=== PATIENT | male | born 1965 | race Caucasian/White ===

== ENCOUNTER 2019-02-10 14:32 | Emergency (ER) | payer MEDICAID, OTHER ==
[~2019-02-10] VITALS: Ht 167.6 cm; Wt 81.2 kg
[~2019-02-10 14:32] MED LIST: ACET-8386 PO; IBUP-974 PO
[2019-02-10 15:03] VITALS: BP 107/79
== END 2019-02-10 16:27 | disposition left against medical advice (07) ==
LOC: MED 14:32
DX: T65.893A Toxic effect of other specified substances, assault, initial encounter (principal); R44.1 Visual hallucinations; Z53.21 Procedure and treatment not carried out due to patient leaving prior to being seen by health care provider

== ENCOUNTER 2020-03-15 18:14 | Emergency (ER) | payer OTHER ==
[~2020-03-15] VITALS: Ht 172.7 cm; Wt 74.8 kg
[2020-03-15 18:26] VITALS: BP 124/80
[2020-03-15] MEDS ORDERED: LIDOCAINE MPF 1% 10 MG/ML VIAL INJ ONE (18:40)
[2020-03-15] MEDS ORDERED: BACITRACIN OINT 500 UNITS/GM PKT TP ONE (18:40)
--- NOTE | 2020-03-15 18:40 | NUR ---
C/O LAC WOUND TO FACE & RIGHT ARM S/P DOG BITE X 1 HOUR AGO. PATIENT'S FRIEND 'S DOG. [facility]: [facility] Addendum: 03/15/20 at 1856 by [email or web address] PT STATED HIS FRIEND'S DOG GOT VACCINE ALREADY.
--- NOTE | 2020-03-15 19:17 | NUR ---
Patient discharged with v/s stable. Written and verbal after care instructions given and explained. Patient alert, oriented and verbalized understanding of instructions. Ambulatory with steady gait. All questions addressed prior to discharge. ID band removed. Patient advised to follow up with PMD. Rx of BACITRACIN, AUGMENTIN & IBUPROFEN given. Patient educated on indication of medication including possible reaction and side effects. Opportunity to ask questions provided and answered.
[2020-03-15 19:18] VITALS: BP 124/80
== END 2020-03-15 19:17 | disposition home or self-care (01) ==
LOC: MED 18:14
DX: S51.811A Laceration without foreign body of right forearm, initial encounter (principal); S01.81XA Laceration without foreign body of other part of head, initial encounter; Z79.899 Other long term (current) drug therapy; W54.0XXA Bitten by dog, initial encounter; Y93.89 Activity, other specified; Y92.89 Other specified places as the place of occurrence of the external cause; Y99.8 Other external cause status
CPT/HCPCS: 12001; 90471; 90715; 99284; J2001

== ENCOUNTER 2020-03-17 18:50 | Emergency (ER) | payer OTHER ==
[~2020-03-17] VITALS: Ht 172.7 cm; Wt 77.1 kg
[2020-03-17 19:30] VITALS: BP 121/85
--- NOTE | 2020-03-17 19:30 | NUR ---
TO LOBBY A/W BED AMBULATORY
--- NOTE | 2020-03-17 19:35 | NUR ---
SEEN AND EXAMINED BY PA WITH ORDERS AND CARRIED OUT
[2020-03-17 19:45] VITALS: BP 121/85
== END 2020-03-17 19:45 | disposition home or self-care (01) ==
LOC: MED 18:50
DX: S01.85XD Open bite of other part of head, subsequent encounter (principal); S51.851D Open bite of right forearm, subsequent encounter; Z48.01 Encounter for change or removal of surgical wound dressing; F17.210 Nicotine dependence, cigarettes, uncomplicated; Z79.1 Long term (current) use of non-steroidal anti-inflammatories (NSAID); Z79.891 Long term (current) use of opiate analgesic; W54.0XXD Bitten by dog, subsequent encounter
CPT/HCPCS: 99282